=== PATIENT | female | born 1965 | race Caucasian/White ===

== ENCOUNTER → 2023-08-31 06:29 | Day surgery (SDC) | payer BC, SELFPAY | LOC: GI 06:29 | PROVIDERS: ATTENDING PHYSICIAN Internal Medicine; FAMILY PHYSICIAN Family Medicine | DX: Z12.11 Encounter for screening for malignant neoplasm of colon (principal); D12.2 Benign neoplasm of ascending colon; D12.5 Benign neoplasm of sigmoid colon; K57.30 Diverticulosis of large intestine without perforation or abscess without bleeding | CPT/HCPCS: 45385; 45380; 88305 ==

== ENCOUNTER 2025-02-22 23:34 | Emergency (ER) | payer BC, SELFPAY ==
[2025-02-22 23:43] VITALS: BP 178/80
[2025-02-22 23:49] VITALS: BMI 31.3
[2025-02-23] VITALS (8 sets, daily range): BP systolic 120–147; BP diastolic 57–89
[2025-02-23 00:07] LABS: Hematocrit 39.0 % (37.0-47.0); Hemoglobin 13.6 g/dL (12.0-16.0); Mean Corp Hgb Conc. 34.9 g/dL (33.0-37.0); Mean Corpuscular Volume 91.5 fL (81.0-99.0); Nucleated Red Blood Cells % 0 %; Platelet Count 152 10^3/uL (130-400); Red Cell Dist. Width 11.9 % (11.5-14.5)
--- NOTE | 2025-02-23 00:16 | ED.GENMED ---
History of Present Illness
General
Chief Complaint: Cardiac Symptoms
Source: patient
Exam Limitations: none
Time Seen by Provider: 02/23/25 00:04
Nursing documentation reviewed up to this point in time: agreed with
History of Present Illness
History of Present Illness:
The patient is a 59-year-old female with pmh of asthma, ex-smoker presents to the ER today after experiencing chest tightness and shortness of breath tonight, which began after lying in bed. Earlier in the afternoon, she noticed sweating and a
burning sensation between her shoulder blades. She has been tapering off her estrogen therapy (oral medication started two years ago, with a change in formulation last spring) and attributed initial symptoms to a possible hot flash. No prior
incidents of such symptoms were reported. The patient does have a history of gastroesophageal reflux disease (GERD), and the pain initially felt similar, although it presented before lying down. She experiences difficulty in breathing, which worsens
when lying flat, and reports pronounced discomfort in her throat and chest upon deep breaths.
The patient travels frequently by car, spending five to seven hours driving daily between [facility] and [facility]. She last flew on February 05 but has not had any recent long flights or prolonged immobilization associated with prior plane
travel. The patient denies any recent leg redness, swelling, or abdominal pain. Her relevant family history includes her grandfather dying at age 42 and her uncle at approximately 50 from cardiac-related issues, though both parents remain living and
without notable cardiac problems. She has no personal hx of cardiac disease. Pain seems to get worse with deep breath. She denies taking anything for the pain. Minimal cough. No sick contacts. No heavy lifting or injury to the chest wall recently.
Past History
Past History
ED Past Medical History: Other (Noncontributory)
ED Past Surgical History: None
Social History
Tobacco: Non-smoker
Personal:
Living: with family
Employment: Employed
Family History
Family History: Other (Noncontributory)
Review of Systems
Review of Systems
All Other Systems: ROS reviewed and negative except as documented in HPI and ROS
Phy Exam
General Physical Exam
General Presentation: well appearing and no apparent distress
General Skin: warm and dry
General Habitus: normal
General Mental: alert
General Hydration: appears well hydrated
ENT Exam
ENT Exam: EOMI
Eye Exam
Eye Exam: PERRL and EOMI
Cardiovascular Exam
Cardiovascular Exam: regular rate/rhythm, no edema and no murmur
Pulmonary Exam
Pulmonary Exam: lungs clear, no respiratory distress, no rales, no crackles, no rhonchi and no wheezing
Gastrointestinal Exam
Gastrointestinal Exam: non distended
Neurological Exam
Neurological Exam: alert, oriented x3 and CN II-XII intact
Skin Exam
Skin Exam: normal color, warm/dry and no rash
Psychiatric Exam
Psychiatric Exam: normal mood/affect
Course
Orders/Labs/Results
Orders:
Orders
02/22/25 23:46
Electrocardiogram (*1) Urgent
Reason for Study: Chest Pain
EKG- Treatment ONCE
Complete Blood Count/With Diff Urgent
Comprehensive Metabolic Panel Urgent
Troponin I Urgent
02/23/25 00:00
Lipase Urgent
Comment: ADD ON
NT-proBNP Urgent
Comment: ADD ON
02/23/25 00:17
COVID-19 Antigen Urgent
Source: Nasal Swab
Influenza A+B Rapid Molecular Urgent
SAL Source: Nasal Swab
Specimen Description:
02/23/25 00:22
Add On- LAB Urgent
Tests Added?: pro NT-BNP
02/23/25 00:32
CT Chest PE Study Urgent
Comment:
Reason For Exam: shortness of breath
02/23/25 01:08
0.9% Sodium Chloride 500 ml [Nss] 500 ml IV BOLUS
02/23/25 01:12
Add On- LAB Urgent
Tests Added?: lipase
02/23/25 02:56
Mag Hydrox/Al Hydrox/Simeth [Maalox] 30 ml Phenobarb/Hyoscy/Atropine/Scop [] 10 ml Viscous Lidocaine 2% [Xylocaine Viscous Cup] 10 ml PO NOW
02/23/25 02:58
Mag Hydrox/Al Hydrox/Simeth [Maalox] 30 ml .ROUTE .STK-MED ONE
Phenobarb/Hyoscy/Atropine/Scop [] 10 ml .ROUTE .STK-MED ONE
02/23/25 02:59
Viscous Lidocaine 2% [Xylocaine Viscous Cup] 15 ml .ROUTE .STK-MED ONE
02/23/25 03:14
Troponin I Urgent
Abnormal Lab Results
02/23/25
00:00
MCH 31.9 H pg
(27.0-31.0)
Absolute Lymphs (auto) 3.5 H 10^3/uL
(1.2-3.4)
Potassium 3.4 L mmol/L
(3.5-5.1)
Chloride 108 H mmol/L
(98-107)
BUN 19 H mg/dl
(7-17)
AST 46 H U/L
(14-36)
ALT 60 H U/L
(0-35)
02/23/25 00:00
02/23/25 00:00
Vital Signs
Initial and Last Documented VS:
Initial Vital Signs
Temp Pulse Resp BP Pulse Ox
97.8 F 64 20 178/80 98
02/22/25 23:43 02/22/25 23:43 02/22/25 23:43 02/22/25 23:43 02/22/25 23:43
Last Documented Vital Signs
Temp Pulse Resp BP Pulse Ox
98 F 64 19 144/71 97
02/23/25 00:09 02/23/25 04:07 02/23/25 04:07 02/23/25 04:00 02/23/25 04:00
MDM/Problems Addressed
Differential Diagnosis Includes:
ddx include ACS, GERD, PE, bronchitis, viral syndrome, costochondritis, pleurisy
MDM/Problems Addressed:
The patient is a 59-year-old female with pmh of asthma, ex-smoker presents to the ER today after experiencing chest tightness and shortness of breath tonight, which began after lying in bed. She has risk factors for PE/DVT including exogenous
estrogen and sedentary long distance travel daily. She was sent for CT PE study which was negative for PE but did show bronchial wall thickening with scattered areas of mucous pluging. ECGs are non-ischemic x2 and troponins are non-detectable x2.
CBC anD CMP unremarkable. In light of patients symptoms together with CT findings suspect acute bronchitis/COPD will trial course of steroids, patient will call PCP for follow up appointment. Patient stable for discharge.
Chronic conditions affecting care: HTN and Asthma
*Pulse Oximetry
SaO2: 98
Oxygen Mode of Delivery: Room air
Patient hypoxic: no
*Critical Care Note
Total Time (30-74mins, 75-104mins- exclusive of procedures): Not Applicable
Update Note
Update Note:
2:57 AM�awaiting CAT scan results. Initial troponin undetectable. Will trial GI cocktail. Will repeat troponin and EKG.
GI cocktail provided no relief in symptoms
ED Attending Note
-
Portions of this chart may have been created with voice recognition software.� Occasional wrong word or��sound alike� substitutions may have occurred due to the inherent limitations of voice recognition software.
Discharge Plan
Departure
Patient Disposition: Home (Routine Discharge)
Patient with high blood pressure during this ER visit?: Yes
Condition: Good
Discharge Problem:
Shortness of breath, Bronchitis
Instructions: Acute bronchitis in adults, Shortness of breath in adults - ED (DC), BLOOD PRESSURE
Prescriptions:
New
prednisone 20 mg tablet
40 mg PO DAILY 5 Days Qty: 10 0RF
Referrals:
UNKNOWN - PT DOES,NOT KNOW [Family Provider]
Activity Restrictions/Additional Instructions:
Prednisone has been sent to her pharmacy. Please take 40 mg once daily for 5 days. Please continue monitor your symptoms. Recommend following up with her primary care provider in 1 week for reassessment and repeat blood work. As discussed, your
CT scan showed bronchial thickening and mucous plugs. Your cardiac blood work was normal.
PLEASE RETURN TO ER SHOULD YOU DEVELOP ACUTE WORSENING YOUR SYMPTOMS, FAINTING SPELLS, DIZZINESS, LIGHTHEADEDNESS, SWELLING IN YOUR LEGS, OR ANY OTHER SIGNS OR SYMPTOMS WORSEN YOU.
Interventions
Interventions:
*Risk Screen - Suicide Last Done: 02/22/25 23:52
*General Assessment Last Done: 02/22/25 23:52
*Neglect/Abuse Screening Last Done: 02/22/25 23:52
*ED- Fall Risk Assessment Last Done: 02/23/25 00:12
*ED COVID-19 Vaccine History Last Done: 02/22/25 23:52
*Nursing Disposition Last Done: 02/23/25 05:08
ED- Pulmonary Assessment Last Done: 02/23/25 00:03
ED- Cardiac Assessment Last Done: 02/23/25 00:03
Discharge Date and Time
Discharge Date/Time: 02/23/25 05:11
Print Language: MAURITANIAN
[2025-02-23 00:28] LABS: ALT (SGPT) 60 U/L (0-35); AST (SGOT) 46 U/L (14-36); Albumin 4.2 g/dl (3.5-5.0); Alkaline Phosphatase 56 U/L (38-126); Calcium 9.0 mg/dl (8.4-10.2); Carbon Dioxide 23 mmol/L (22-30); Chloride 108 mmol/L (98-107); Estimated Creatinine Clearance 118 ml/min; Glucose 91 mg/dl (70-99); Potassium 3.4 mmol/L (3.5-5.1); Sodium 137 mmol/L (135-145); Total Protein 6.9 g/dl (6.3-8.2); eGFR > 60.00
[2025-02-23 00:37] LABS: Blood Urea Nitrogen 19 mg/dl (7-17)
[2025-02-23 00:39] LABS: Troponin I < 0.012 ng/ml
[2025-02-23 00:44] LABS: COVID-19 Antigen Negative (Negative)
[2025-02-23] MEDS: NSS 500 IV (01:20)
[2025-02-23 01:42] LABS: Lipase 106 U/L (23-300)
[2025-02-23] MEDS: MAALOX 50 PO (03:02)
[2025-02-23 03:58] LABS: Troponin I < 0.012 ng/ml
== END 2025-02-23 05:11 | disposition home or self-care (01) ==
LOC: EMR 23:34
PROVIDERS: Emergency Medicine; Physician Assistant; EMERGENCY PHYSICIAN Student in an Organized Health Care Education/Training Program
DX: J40 Bronchitis, not specified as acute or chronic (principal); R06.02 Shortness of breath; I10 Essential (primary) hypertension
CPT/HCPCS: 99284; 96360; 71275; 80053; 83690; 83880; 84484; 85025; 87502; 87811; 93005; Q9967